=== PATIENT | female | born 1965 | race Caucasian/White ===

== ENCOUNTER 2017-02-06 21:34 | Emergency (ER) | payer MEDICARE, MEDICAID ==
[2017-02-06 22:14] LABS: APPEARANCE,URINE CLOUDY; BILIRUBIN,URINE NEGATIVE (NEGATIVE); GLUCOSE, URINE NEGATIVE (NEGATIVE); KETONES,URINE NEGATIVE (NEGATIVE); LEUKOCYTE ESTERASE,URINE TRACE (NEGATIVE); NITRITE,URINE NEGATIVE (NEGATIVE); PROTEIN,URINE NEGATIVE (NEGATIVE); URINE SPECIFIC GRAVITY 1.011; UROBILINOGEN,URINE NEGATIVE mg/dL (<2.0)
[2017-02-06] MEDS ORDERED: NORMAL SALINE 1000 ML 1,000 ML IV ONE (22:15)
[2017-02-06] MEDS ORDERED: MORPHINE SULFATE 10 MG/ML INJ IV ONE (22:15)
[2017-02-06] MEDS ORDERED: METOCLOPRAMIDE HCL INJ/PF 10 MG/2 ML SDV IV ONE (22:16)
--- NOTE | 2017-02-06 22:24 | ER Document Report ---
ED GI/ - General Chief Complaint: Flank Pain Stated Complaint: FLANK PAIN Mode of Arrival: Medic Information source: Patient - [facility] Notes: 02/06/17 22:22 Patient arrives with complaints of abdominal pain. The patient has a history of cerebral palsy. She also has a history of kidney stones. She states that a few hours ago she had sudden onset right flank pain with hematuria, and difficulty urinating. She also reports nausea, vomiting. She denies any fevers. She denies any difficulty breathing. She denies any chest pain. No rash. No injury. She is on no blood thinners. She denies any diarrhea. No known sick contacts. Nothing makes her pain better or worse. She denies any unilateral numbness tingling or weakness. 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 - Related Data Allergies/Adverse Reactions: ketorolac [From Toradol] Allergy (Verified 02/06/17 21:43) ondansetron Allergy (Verified 02/06/17 21:43) Past Medical History - Social History Smoking Status: Unknown if Ever Smoked Family History: Reviewed & Not Pertinent Pulmonary Medical History: Reports: Hx COPD Renal/ Medical History: Reports: Hx Kidney Stones GI Medical History: Reports: Hx Gastroesophageal Reflux Disease Psychiatric Medical History: Reports: Hx Attention Deficit Hyperactivity Disorder - leukemia (chemo) Past Surgical History: Reports: Hx Cholecystectomy - 2017, Hx Kidney (Renal Surgery) - for kidney stones x3 Review of Systems - Review of Systems -: Yes All other systems reviewed and negative Physical Exam - Vital signs Vitals: Temp Pulse Resp BP Pulse Ox 97.7 F 96 18 114/71 96 02/06/17 21:43 02/06/17 21:43 02/06/17 21:43 02/06/17 21:43 02/06/17 21:43 - Notes Notes: GENERAL: alert, cooperative, nontoxic, no distress. HEAD: normocephalic, atraumatic EYES: conjunctiva pink without discharge, no external redness or swelling. EARS: no external swelling, no external redness NOSE: atraumatic, no external swelling MOUTH/THROAT: mucous membranes moist and pink, posterior pharynx without erythema, swelling, exudate. No trismus or drooling. NECK: soft, supple, full range of motion, no meningismus. CHEST: no distress, lungs clear and equal throughout. No wheezing, rales, rhonchi. CARDIAC: regular rate and rhythm, no murmur, normal capillary refill, normal pulses. No peripheral edema noted. ABDOMEN: Soft, mild tenderness to palpation of the right upper quadrant and right flank. No rebound tenderness or guarding.. BACK: full range of motion, mild right CVA tenderness. EXTREMITIES: full range of motion of all extremities. No redness, no swelling. NEURO: alert and oriented 3, no focal deficits, full range of motion of all extremities. PYSCH: appropriate mood, affect. Patient is cooperative. SKIN: pink, warm, dry, no rash. Course - Re-evaluation Re-evalutation: 02/07/17 00:25 Patient's nontoxic appearing with stable vitals. Patient's urine shows blood with leukocyte esterase and several WBCs. Possible she could have urinary tract infection. CT shows nonobstructive bilateral kidney stones, no other acute abnormality noted. Her gallbladder has been removed. She is noted have a slight elevation in her LFTs, I have no prior labs to compare these to. Possible at this patient's right flank pain could be early pyelonephritis, but no signs of pyelonephritis seen on her CT and she is nontoxic appearing. She is not febrile. She is having no vomiting here in the ED. She is feeling significantly better at this time. Patient states she is feeling better and would like to go home. The patient will be discharged home on Keflex, Phenergan , small supply of pain medication. Follow up with her doctor Thursday for reevaluation. She was instructed to return to emergency department if she develops increased pain, fever, persistent vomiting, or has any further concerns. The patient's emergency department workup and current diagnosis were explained to the patient and or family. Follow-up instructions were provided. Medications if prescribed were discussed. Instructions for when to return to the emergency department including specific worrisome symptoms were discussed with the patient and/or family. - Vital Signs Vital signs: Temp Pulse Resp BP Pulse Ox 97.7 F 96 18 114/71 95 02/06/17 21:43 02/06/17 21:43 02/06/17 21:43 02/06/17 21:43 02/06/17 21:45 - Laboratory Result Diagrams: 02/06/17 22:44 02/06/17 23:18 Laboratory results interpreted by me: 02/06/17 02/06/17 02/06/17 21:44 22:44 23:18 Hct 34.9 L RDW 14.8 H Eosinophils % 9.3 H Sodium 145.3 H Chloride 110 H AST 125 H ALT 103 H Alkaline Phosphatase 215 H Total Protein 6.0 L Albumin 3.3 L Urine Blood LARGE H Ur Leukocyte Esterase TRACE H - Diagnostic Test Radiology reviewed: Image reviewed, Reports reviewed - Bilateral kidney stones, no obstructive uropathy. Discharge - Discharge Clinical Impression: Urinary tract infection Qualifiers: Urinary tract infection type: acute cystitis Hematuria presence: with hematuria Qualified Code(s): N30.01 - Acute cystitis with hematuria Condition: Stable Disposition: HOME, SELF-CARE Instructions: Urinary Tract Infection ([facility]) Additional Instructions: Take medications as prescribed. Drink lots of fluids. Follow-up with your doctor on Thursday for reevaluation. Return to the emergency Department for increased pain, fever, persistent vomiting, or any further concerns. The medication you were prescribed today may cause drowsiness. Do not drive or operate heavy machinery while taking this medication. Prescriptions: Promethazine HCl [Phenergan 25 mg Tablet] 25 mg PO Q6HP PRN #10 tablet PRN Reason: Cephalexin [Cephalexin 500 MG Capsule] 1 cap PO QID #40 cap Hydrocodone/Acetaminophen [Loman 5-325 mg Tablet] 1 tab PO Q4 PRN #12 tablet PRN Reason:
[2017-02-06 22:52] LABS: ABSOLUTE BASOPHILS # (AUTO) 0.1 10^3/uL (0.0-0.2); ABSOLUTE EOSINOPHILS # (AUTO) 0.6 10^3/uL (0.0-0.6); ABSOLUTE LYMPHOCYTES (AUTO) 1.6 10^3/uL (0.5-4.7); ABSOLUTE MONOCYTES (AUTO) 0.8 10^3/uL (0.1-1.4); ABSOLUTE NEUT (AUTO) 2.9 10^3/uL (1.7-8.2); BASOPHILS % (AUTO) 1.1 % (0-2); EOSINOPHILS % (AUTO) 9.3 % (0-6); HEMATOCRIT 34.9 % (36.0-47.0); HGB HCT DIFFERENCE 1.1; LYMPHOCYTES % (AUTO) 27.3 % (13-45); MEAN CORPUSCULAR HEMOGLOBIN 30.5 pg (27.0-33.4); MEAN CORPUSCULAR HGB CONC 34.3 g/dL (32.0-36.0); MEAN CORPUSCULAR VOLUME 89 fl (80-97); RED BLOOD COUNT 3.92 10^6/uL (3.72-5.28); RED CELL DISTRIBUTION WIDTH 14.8 % (11.5-14.0); SEGMENTED NEUTROPHILS % (AUTO) 49.3 % (42-78)
[2017-02-06 23:53] LABS: ALANINE AMINOTRANSFERASE 103 U/L (9-52); ALBUMIN 3.3 g/dL (3.5-5.0); ALKALINE PHOSPHATASE 215 U/L (38-126); ANION GAP 10 (5-19); ASPARTATE AMINO TRANSFERASE 125 U/L (14-36); BILIRUBIN,DIRECT 0.1 mg/dL (0.0-0.4); BILIRUBIN,TOTAL 0.3 mg/dL (0.2-1.3); BLOOD UREA NITROGEN 9 mg/dL (7-20); CALCIUM 8.8 mg/dL (8.4-10.2); CARBON DIOXIDE 25 mmol/L (22-30); CHLORIDE 110 mmol/L (98-107); GLUCOSE 94 mg/dL (75-110); LIPASE 24.5 U/L (23-300); POTASSIUM 3.8 mmol/L (3.6-5.0); SODIUM 145.3 mmol/L (137-145)
[2017-02-07] MEDS ORDERED: CEFTRIAXONE 1 GM/D5W RTU 50 ML IV ONE (00:24)
[2017-02-07 00:50] VITALS: BP 102/72
== END 2017-02-07 01:30 | disposition home or self-care (01) ==
LOC: ER 21:34
DX: N30.01 Acute cystitis with hematuria (principal); R10.9 Unspecified abdominal pain; G80.9 Cerebral palsy, unspecified; J44.9 Chronic obstructive pulmonary disease, unspecified; K21.9 Gastro-esophageal reflux disease without esophagitis; Z87.442 Personal history of urinary calculi; Z90.49 Acquired absence of other specified parts of digestive tract
CPT/HCPCS: 99284; 96361; 96375; 96365; 36415; 83690; 85025; 80053; 81001; 76380; J2765; J2270; J7030; J0696